=== PATIENT | male | born 1995 | race Caucasian/White ===

== ENCOUNTER 2017-09-29 23:56 | Emergency (ER) | payer OTHER ==
[~2017-09-29] VITALS: Ht 167.6 cm; Wt 118.7 kg
[2017-09-30 00:09] VITALS: TEMP 36.8; Ht 167.6 cm; Wt 118.7 kg
[2017-09-30 00:54] LABS: CALCIUM 9.1 mg/dl (8.5-10.1); CREATININE 1.17 mg/dl (0.60-1.40); POTASSIUM 4.1 mmol/L (3.5-5.1)
--- NOTE | 2017-09-30 02:52 | EMERGENCY ROOM VISIT NOTE ---
ED Visit Note First contact with patient: 00:20 CHIEF COMPLAINT: Alcohol overdose HISTORY OF PRESENT ILLNESS: This 2-year-old male patient presents to the emergency department via ambulance for evaluation of an alcohol overdose. He states "I was behaving myself and went up here". The patient admits to drinking 4-5 mixed drinks last night [place], and states he was crossing the street for the bus, when he ran into police officers. The patient states he was trying to get home to the [place], however when this occurred, EMS was contacted and he was brought here. The patient denies any trauma or complaints at this time. He denies head pain, neck pain, headache, dizziness, syncope, chest pain, dyspnea, abdominal pain, or other associated symptoms. He does request to go home. REVIEW OF SYSTEMS: Once the patient was able to reliably answer questions a review of systems was performed with positives and pertinent negatives listed in the history of present illness. All other systems were reviewed and are negative. ALLERGIES: None MEDICATIONS: None PMH: None SOCIAL HISTORY: The patient is a [employer]. He lives locally with his roommate. He denies drug, tobacco use. PHYSICAL EXAM: VITALS: Vitals are noted on the nurse's note and reviewed by myself. Vital signs stable. GENERAL: This is a 22-year-old male, in no acute distress, nondiaphoretic, well- developed well-nourished. The patient is loud and visibly intoxicated. SKIN: The skin was without obvious lacerations, abrasions, or rashes. There is no tenting of the skin. Capillary reflex less than 2 seconds. HEENT: Normocephalic, atraumatic. PERRLA. EOMI. Conjunctiva with mild injection without icterus. Tympanic membranes without erythema or effusion bilaterally no hemotympanum. External auditory canals are clear. Nares patent bilaterally. No epistaxis. Oropharynx without erythema or exudate. Uvula midline. Oral mucosal moist. No lymphadenopathy. Neck is supple without cervical spine tenderness. HEART: Regular rate and rhythm without murmurs gallops or rubs. Peripheral pulses 2+. LUNGS: Clear to auscultation bilaterally without wheezes, rales or rhonchi. ABDOMEN: Positive bowel sounds x 4. Normal tympanic percussion. Soft, nontender, without masses or organomegaly. MUSCULOSKELETAL: Gross motor function of the upper and lower extremities intact. The patient has a staggering gait. NEUROLOGIC: The patient is visibly intoxicated. Once they were more sober they were alert and oriented to person place and time. EMERGENCY DEPARTMENT COURSE: I examined the patient. Conservative care measures were instituted. The patient was placed in a prone position. Aspiration precautions were instituted. The patient was placed on court monitor and watched during the patient's stay. The patient's blood alcohol level was 286. The patient did sober up minimally and was able to talk, walk, and drink fluids without difficulty. The patient was advised that he could leave with a sober friend after 2 hours, but that he would need to stay until 7: 00am if he is unable to find a sober friend to take him home. The patient was given alcohol intoxication handouts. The patient was discharged home in stable condition with his friend, Paxton De Leon, who was willing to take responsibility to monitor the patient at home. Paxton was advised that under normal circumstances , the patient would be monitored until at least 7am. I attest that I have personally reviewed the patient's current medication list. Patient was found to have normal blood pressure on screening and does not require follow-up. In the evaluation and treatment of this patient, the following differential diagnoses were considered: Hypoglycemia, Barbiturate Toxicity, Benzodiazepine Toxicity, Depression and Suicidality, Diabetic Ketoacidosis, Encephalitis, Ethylene Glycol Toxicity, Meningitis, Metabolic Acidosis, Opioid Toxicity, CVA, TIA, Intracranial Abnormality, Acute Psychosis, Amongst Others. DIAGNOSIS: Acute alcohol intoxication Current/Historical Medications No Active Prescriptions or Reported Meds Allergies Coded Allergies: No Known Allergies (Unverified , 09/30/17) Vital Signs Date Time Temp Pulse Resp B/P (MAP) Pulse Ox O2 Delivery O2 Flow Rate FiO2 09/30/17 03:10 130/98 96 09/30/17 03:06 119 91 09/30/17 02:51 101 97 09/30/17 02:36 106 95 09/30/17 02:21 116 21 95 09/30/17 02:06 118 22 95 09/30/17 02:02 87/ 09/30/17 01:51 121 15 97 09/30/17 01:36 120 16 96 09/30/17 01:31 95/78 09/30/17 01:26 116 12 94 09/30/17 01:11 125 97 09/30/17 01:01 115/63 09/30/17 00:56 119 96 09/30/17 00:44 145/79 09/30/17 00:41 122 97 09/30/17 00:26 141 96 09/30/17 00:11 135 19 98 Room Air 09/30/17 00:10 137 09/30/17 00:09 143/96 09/30/17 00:09 36.8 136 20 143/96 98 Room Air 09/30/17 00:07 175/129 Laboratory Results 09/30/17 00:19 Test 09/30/17 00:19 Anion Gap 8.0 mmol/L (3-11) Est Creatinine Clear Calc Drug Dose 121.1 ml/min Estimated GFR () 102.7 Estimated GFR (Non- 88.6 BUN/Creatinine Ratio 9.6 (10-20) Calcium Level 9.1 mg/dl (8.5-10.1) Ethyl Alcohol mg/dL 286.0 mg/dl (0-3) Departure Information Impression Primary Impression: Alcohol use with intoxication Dispostion Home / Self-Care Condition GOOD Prescriptions No Active Prescriptions or Reported Meds Referrals No Doctor, Assigned (PCP) Patient Instructions ED Overdose Alcohol, My [facility] Additional Instructions You were seen in the ED today for alcohol overuse. No more drinking. Do not do drugs. Drink plenty of non-alcoholic fluids and stay well-hydrated. You may use OTC ibuprofen/acetaminophen for pain. Do not use more than the recommended daily dosages on the bottles. Follow-up with the PCP/[facility] in 2-3 days. Return to the ED for intractable vomiting, loss of consciousness, seizures, or other concerning symptoms.
[2017-09-30 03:06] VITALS: PULSE 119
[2017-09-30 03:10] VITALS: BP 130/98; O2SAT 96
== END 2017-09-30 03:12 | disposition home or self-care (01) ==
LOC: C.EDB 23:58
DX: F10.929 Alcohol use, unspecified with intoxication, unspecified (principal); Y90.8 Blood alcohol level of 240 mg/100 ml or more